=== PATIENT | male | born 1960 | race African-American/Black ===

== ENCOUNTER 2023-12-05 06:31 | Inpatient (IN) | payer BC ==
[2023-12-05 07:04] LABS: #Basophils 0.06 10x3/uL (0.0-0.2); %Basophils 0.6 % (0.0-1.0); %Eosinophils 1.6 % (0.0-10.0); %Lymphocytes 28.7 % (21.0-51.0); %Monocytes 7.6 % (0.0-10.0); %Neutrophils 61.2 % (42.0-75.0); Hemoglobin 16.7 g/dL (14.0-18.0); Mean Corpuscular HGB CONC 34.1 g/dL (32.0-36.0); Mean Corpuscular Hemoglobin 33.6 pg (27.0-31.0); Mean Corpuscular Volume 98.6 fL (78.0-98.0); Platelet Count 312 10x3/uL (130-400); RBC Distribution Width 13.9 % (11.5-14.5); Red Blood Cell (RBC) Count 4.97 mill/uL (4.70-6.10)
[2023-12-05 07:29] LABS: ALT (SGPT) 12 U/L (8-55); AST (SGOT) 20 U/L (5-34); Albumin 4.5 g/dL (3.4-4.8); Alkaline Phosphatase 65 U/L (40-110); Anion Gap 16 mmol/L (10-20); BUN (Urea Nitrogen) 12 mg/dL (8.4-25.7); Bilirubin, Total 0.6 mg/dL (0.2-1.2); Calc. Creatinine Clearance 0 mL/min (70-130); Calcium 10.2 mg/dL (7.8-10.44); Carbon Dioxide 24 mmol/L (23-31); Chloride 101 mmol/L (98-107); Estimated GFR 91; Globulin 3.5 g/dL (2.4-3.5); Glucose 111 mg/dL (80-115); Lipase 26 U/L (8-78); Potassium 3.9 mmol/L (3.5-5.1); Sodium 137 mmol/L (136-145)
[2023-12-05 08:00] LABS: Magnesium 2.3 mg/dL (1.6-2.6)
[2023-12-05] MEDS ORDERED: Aspirin Chewable 81 MG TAB ONE (08:28)
[2023-12-05 08:44] LABS: Influenza A by NAA Not Detected (NotDetected); Influenza B by NAA Not Detected (NotDetected); SARS-CoV-2 NAA Rapid Test Not Detected (NotDetected)
[2023-12-05] MEDS ORDERED: Acetaminophen 325 MG TAB PO PRN (09:16)
[2023-12-05] MEDS ORDERED: Ondansetron PF 4 MG/2 ML Vial IVP PRN (09:16)
[2023-12-05] MEDS ORDERED: Acetaminophen 650 MG Suppository PR PRN (09:16)
[2023-12-05] MEDS ORDERED: Ondansetron ODT 4 MG TAB PO PRN (09:16)
[2023-12-05] MEDS ORDERED: hydrALAZINE 20 MG/ML VIAL SLOW IVP PRN (09:18)
[2023-12-05 13:47] LABS: Troponin I Less than 0.010 ng/mL (< 0.028)
[2023-12-05 13:48] LABS: Troponin I 0.012 ng/mL (< 0.028)
[2023-12-05 13:53] LABS: Hemoglobin A1c 5.4 % (4.0-6.0)
[2023-12-05 14:05] VITALS: BMI 24.4
[2023-12-05 14:44] LABS: Bacteria/HPF None Seen HPF (None Seen); Bilirubin Negative (Negative); Blood, Urine Negative (Negative); Clarity Clear (Clear); Glucose, Urine (Dipstick) Normal (Negative); Ketone, Urine 20 mg/dL (Negative); Leukocyte Negative Leu/uL (Negative); Nitrite Negative (Negative); Protein, Urine (Dipstick) 10 mg/dL (Neg-Trace); RBC/HPF 0-3 HPF (0-3); Squamous Epithelial None Seen HPF (0-3); WBC/HPF None Seen HPF (0-3)
[2023-12-05 14:46] LABS: Specific Gravity, Urine Greater than 1.060 (1.002-1.036)
[2023-12-05] MEDS ORDERED: Iopamidol-370 76% 500 ML MDV (1 ML CHARGE) ONE (14:57)
[2023-12-05 16:40] LABS: Amphetamine Not Detected (NotDetected); Barbiturates Screen Not Detected (NotDetected); Benzodiazepine Screen Not Detected (NotDetected); Cocaine Metabolite Screen Detected (NotDetected); Methadone Not Detected (NotDetected); Methamphetamine Not Detected (NotDetected); Opiate Screen Not Detected (NotDetected); Oxycodone Screen Not Detected (NotDetected); Phencyclidine (PCP) Not Detected (NotDetected); THC/Cannabinoid Screen Not Detected (NotDetected); Tricyclic Screen Not Detected (NotDetected)
[2023-12-05] MEDS ORDERED: Nitroglycerin 0.4 MG TAB (25 Tab Bottle) SL PRN (17:45)
[2023-12-05 19:28] LABS: Anion Gap 16 mmol/L (10-20); BUN (Urea Nitrogen) 11 mg/dL (8.4-25.7); Calc. Creatinine Clearance 85 mL/min (70-130); Calcium 9.7 mg/dL (7.8-10.44); Carbon Dioxide 20 mmol/L (23-31); Chloride 103 mmol/L (98-107); Estimated GFR 96; Glucose 82 mg/dL (80-115); Potassium 4.3 mmol/L (3.5-5.1); Sodium 135 mmol/L (136-145)
[2023-12-05 19:55] LABS: #Basophils 0.06 10x3/uL (0.0-0.2); %Basophils 0.8 % (0.0-1.0); %Lymphocytes 35.5 % (21.0-51.0); %Monocytes 10.9 % (0.0-10.0); %Neutrophils 50.5 % (42.0-75.0); Hematocrit 48.6 % (42.0-52.0); Hemoglobin 16.2 g/dL (14.0-18.0); Mean Corpuscular HGB CONC 33.3 g/dL (32.0-36.0); Mean Corpuscular Hemoglobin 34.2 pg (27.0-31.0); Mean Corpuscular Volume 102.5 fL (78.0-98.0); Mean Platelet Volume 10.2 fL (7.4-10.4); Platelet Count 272 10x3/uL (130-400); RBC Distribution Width 14.3 % (11.5-14.5); Red Blood Cell (RBC) Count 4.74 mill/uL (4.70-6.10)
[2023-12-06 05:01] LABS: #Basophils 0.07 10x3/uL (0.0-0.2); %Basophils 0.9 % (0.0-1.0); %Eosinophils 2.7 % (0.0-10.0); %Lymphocytes 39.3 % (21.0-51.0); %Monocytes 9.5 % (0.0-10.0); %Neutrophils 47.2 % (42.0-75.0); Hemoglobin 15.4 g/dL (14.0-18.0); Mean Corpuscular HGB CONC 33.5 g/dL (32.0-36.0); Mean Corpuscular Hemoglobin 33.6 pg (27.0-31.0); Mean Corpuscular Volume 100.4 fL (78.0-98.0); Mean Platelet Volume 10.2 fL (7.4-10.4); Platelet Count 290 10x3/uL (130-400); RBC Distribution Width 14.2 % (11.5-14.5); Red Blood Cell (RBC) Count 4.58 mill/uL (4.70-6.10)
[2023-12-06 05:25] LABS: Anion Gap 17 mmol/L (10-20); BUN (Urea Nitrogen) 13 mg/dL (8.4-25.7); Calc. Creatinine Clearance 87 mL/min (70-130); Calcium 9.5 mg/dL (7.8-10.44); Carbon Dioxide 23 mmol/L (23-31); Cardiac Risk 4.8 (Less than 4.5); Chloride 104 mmol/L (98-107); Cholesterol 242 mg/dl (< 200 Desired); Estimated GFR 98; Glucose 66 mg/dL (80-115); HDL Cholesterol 50 mg/dL (>60 Neg Risk); LDL Cholesterol, Calculated 157 mg/dL; Potassium 3.9 mmol/L (3.5-5.1); Sodium 140 mmol/L (136-145); Triglycerides 176 mg/dL (Less than 150)
[2023-12-06] MEDS ORDERED: Aspirin 300 MG Suppository PR SCH (09:00)
[2023-12-06] MEDS ORDERED: Aspirin Chewable 81 MG TAB ONE (09:30)
[2023-12-06] MEDS ORDERED: Enoxaparin 40 MG (0.4 mL) SYRINGE ONE (09:30)
[2023-12-06] MEDS: Aspirin 81 mg Enteric Coated Tablet PO SCH (09:45)
[2023-12-06] MEDS: Aspirin Chewable 81 MG TAB PO SCH (09:45)
[2023-12-06] MEDS: Enoxaparin 40 MG (0.4 mL) SYRINGE SC SCH (09:45)
[2023-12-06] MEDS ORDERED: Iopamidol-370 76% 500 ML MDV (1 ML CHARGE) ONE (10:25)
[2023-12-06] MEDS ORDERED: hydrALAZINE 20 MG/ML VIAL SLOW IVP PRN (17:50)
[2023-12-07 05:45] LABS: #Basophils 0.07 10x3/uL (0.0-0.2); %Basophils 0.9 % (0.0-1.0); %Eosinophils 2.7 % (0.0-10.0); %Lymphocytes 41.1 % (21.0-51.0); %Neutrophils 46.9 % (42.0-75.0); Hematocrit 48.5 % (42.0-52.0); Hemoglobin 15.9 g/dL (14.0-18.0); Mean Corpuscular HGB CONC 32.8 g/dL (32.0-36.0); Mean Corpuscular Hemoglobin 33.5 pg (27.0-31.0); Mean Corpuscular Volume 102.1 fL (78.0-98.0); Mean Platelet Volume 10.4 fL (7.4-10.4); Platelet Count 275 10x3/uL (130-400); Red Blood Cell (RBC) Count 4.75 mill/uL (4.70-6.10)
[2023-12-07 05:52] LABS: Anion Gap 14 mmol/L (10-20); BUN (Urea Nitrogen) 12 mg/dL (8.4-25.7); Calc. Creatinine Clearance 76 mL/min (70-130); Calcium 9.7 mg/dL (7.8-10.44); Carbon Dioxide 25 mmol/L (23-31); Chloride 103 mmol/L (98-107); Estimated GFR 84; Glucose 121 mg/dL (80-115); Potassium 3.9 mmol/L (3.5-5.1); Sodium 138 mmol/L (136-145)
[2023-12-07] MEDS: Thiamine 100 MG TAB PO SCH (09:11)
[2023-12-07] MEDS: Lisinopril 20 MG TAB PO SCH (09:11)
[2023-12-07] MEDS: Atorvastatin Calcium 40 MG TAB PO SCH (09:11)
[2023-12-07] MEDS: Hydrochlorothiazide 25 MG TAB PO SCH (09:11)
[2023-12-07] MEDS: Folic Acid 1 MG TAB PO SCH (09:11)
[2023-12-07] MEDS: Aspirin 81 mg Enteric Coated Tablet PO SCH (09:12)
[2023-12-08] MEDS ORDERED: Regadenoson 0.4 MG/5 ML SYRINGE ONE (13:25)
[2023-12-08] MEDS: Sodium Chloride 0.9% 1,000 ML IV SCH (19:06)
[2023-12-09 03:29] VITALS: TEMP 98.1
[2023-12-09 11:12] VITALS: BP 133/66
== END 2023-12-09 14:12 | disposition home or self-care (01) | DRG 897 ==
LOC: ERS 06:31 → ERHOLD 08:43 → 2SE 12-06 18:29 → OBSVTOIN 12-07 17:00
PROVIDERS: ADMIT Student in an Organized Health Care Education/Training Program; ATTEND Hospitalist
DX: F19.10 Other psychoactive substance abuse, uncomplicated (principal); I50.32 Chronic diastolic (congestive) heart failure; I69.853 Hemiplegia and hemiparesis following other cerebrovascular disease affecting right non-dominant side; R29.90 Unspecified symptoms and signs involving the nervous system; R07.9 Chest pain, unspecified; E78.5 Hyperlipidemia, unspecified; F17.210 Nicotine dependence, cigarettes, uncomplicated; R07.0 Pain in throat; Z71.51 Drug abuse counseling and surveillance of drug abuser
CPT/HCPCS: 36415; 36416; 70491; 70496; 70498; 70551; 71045; 78452; 80048; 80053; 80061; 80306; 81001; 83036; 83690; 83735; 83880; 84484; 85025; 87081; 87430; 93005; 93017; 93306; 94760; 95700; 95711; 95957; A9500; J1650; J2785; J7030; Q9967